=== PATIENT | male | born 1945 | race Caucasian/White ===

== ENCOUNTER → 2017-08-08 | Outpatient (REF) | payer MEDICARE, BC, OTHER ==
[2017-08-08 12:54] LABS: VITAMIN B12 LEVEL 424 PG/ML (247-911)
== END ==
LOC: M LAB REF 11:56
DX: D51.9 Vitamin B12 deficiency anemia, unspecified (principal)
CPT/HCPCS: 82607

== ENCOUNTER → 2018-02-06 | Outpatient (REF) | payer MEDICARE, BC, OTHER ==
[2018-02-06 12:38] LABS: VITAMIN B12 LEVEL 343 PG/ML (247-911)
== END ==
LOC: M LAB REF 11:51
DX: D51.9 Vitamin B12 deficiency anemia, unspecified (principal)
CPT/HCPCS: 82607

== ENCOUNTER → 2019-08-15 | Outpatient (REF) | payer MEDICARE, BC, OTHER ==
[2019-08-19 00:06] LABS: ANTINUCLEAR ANTIBODIES DIRECT Negative (Negative); CYCLIC CITRULLINATED PEPTIDE 8 units (0-19)
== END ==
LOC: M LAB REF 14:15
PROVIDERS: ATTEND Internal Medicine
DX: M25.50 Pain in unspecified joint (principal)

== ENCOUNTER → 2020-02-19 | Outpatient (REF) | payer MEDICARE, BC, OTHER | LOC: M LAB REF 12:11 | PROVIDERS: ATTEND Internal Medicine | DX: D51.9 Vitamin B12 deficiency anemia, unspecified (principal) ==

== ENCOUNTER → 2021-01-05 | Outpatient (REF) | payer MEDICARE, BC, OTHER | LOC: M LAB REF 11:27 | PROVIDERS: ATTEND Internal Medicine | DX: D51.9 Vitamin B12 deficiency anemia, unspecified (principal) ==

== ENCOUNTER → 2023-02-15 | Outpatient (REF) | payer MEDICARE, BC, OTHER | LOC: M LAB REF 12:12 | PROVIDERS: ATTEND Internal Medicine | DX: D51.9 Vitamin B12 deficiency anemia, unspecified (principal) ==

== ENCOUNTER → 2024-06-25 | Outpatient (REF) | payer MEDICARE, BC, OTHER | LOC: M LAB REF 17:39 | PROVIDERS: ATTEND Internal Medicine | DX: D51.9 Vitamin B12 deficiency anemia, unspecified (principal) ==

== ENCOUNTER → 2024-06-27 | Outpatient (CLI) | payer MEDICARE, BC, OTHER | LOC: M RAD 15:29 | PROVIDERS: ATTEND Internal Medicine | DX: M54.9 Dorsalgia, unspecified (principal); R05.9 Cough, unspecified; R09.89 Other specified symptoms and signs involving the circulatory and respiratory systems ==

== ENCOUNTER → 2024-07-19 | Outpatient (CLI) | payer MEDICARE, BC, OTHER ==
[~2024-07-19] MED LIST: PROHANCE 279.3MG/ML 15ML VIAL ONE
== END ==
LOC: M PLAIMG 14:01
PROVIDERS: ATTEND Internal Medicine
DX: R53.1 Weakness (principal); G31.89 Other specified degenerative diseases of nervous system; R90.82 White matter disease, unspecified
CPT/HCPCS: 70553; A9576

== ENCOUNTER → 2024-10-10 | Outpatient (CLI) | payer MEDICARE, BC, OTHER ==
[2024-10-10 12:14] LABS: FOLATE > 24.0 NG/ML (>5.4)
[2024-10-10 12:15] LABS: THYROID STIMULATING HORMONE 1.771 uIU/ML (0.55-4.78)
[2024-10-10 12:17] LABS: VITAMIN B12 LEVEL 263 PG/ML (211-911)
[2024-10-15 15:48] LABS: VITAMIN E(ALPHA TOCOPHEROL) 10.9 mg/L (5.7-19.9); VITAMIN E(GAMMA TOCOPHEROL) < 1.0 mg/L (<=4.3)
[2024-10-16 18:12] LABS: VITAMIN B6,PYRIDOXAL PHOSPHATE 2.6 ng/mL (2.1-21.7)
== END ==
LOC: M LAB 10:52
PROVIDERS: ATTEND Psychiatry & Neurology Neurology
DX: F03.90 Unspecified dementia, unspecified severity, without behavioral disturbance, psychotic disturbance, mood disturbance, and anxiety (principal)

== ENCOUNTER → 2025-06-05 | Outpatient (CLI) | payer MEDICARE, BC, OTHER ==
[2025-06-05 17:34] LABS: VITAMIN B12 LEVEL 313.0 PG/ML (211-911)
[2025-06-05 17:41] LABS: ESTIMATED AVERAGE GLUCOSE 131.0 MG/DL (60-110)
== END ==
LOC: M PLALAB 13:23
PROVIDERS: ATTEND Psychiatry & Neurology Neurology
DX: E11.9 Type 2 diabetes mellitus without complications (principal); E53.8 Deficiency of other specified B group vitamins; E51.9 Thiamine deficiency, unspecified; R41.3 Other amnesia

== ENCOUNTER → 2025-06-23 | Outpatient (CLI) | payer MEDICARE, BC, OTHER ==
[2025-06-23 15:12] LABS: CHOLESTEROL LEVEL 190.0 MG/DL (<200); CHOLESTEROL RISK RATIO 3.62 (<5); LDL CHOLESTEROL 123.4 MG/DL (<100); NON-HDL-C 137.6 MG/DL; TRIGLYCERIDES LEVEL 71.0 MG/DL (<150)
== END ==
LOC: M PLALAB 09:55
PROVIDERS: ATTEND Nurse Practitioner Family
DX: I70.0 Atherosclerosis of aorta (principal)